=== PATIENT | female | born 2000 ===

== ENCOUNTER 2025-07-22 14:59 | Outpatient (AMB) | payer OTHER, SELFPAY ==
--- NOTE | 2025-07-22 15:03 | MHC.PC.OV ---
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 Specialist Required: No Accompanied by: Self / Same As Patient Allergies No Known Allergies Allergy (Verified 07/22/25 15:20) Medication List - Last Reconciled 07/22/25 by Viridiana Koch MD guanfacine ER 1 mg PO DAILY lamotrigine 200 mg PO DAILY venlafaxine ER 37.5 mg PO DAILY venlafaxine ER 75 mg PO DAILY Tobacco use date assessed: 07/22/25 Dental Screening Dental Screen Date: 07/22/25 Did you have a dental visit in the last 12 months?: Yes Did you have a dental problem in the last 6 months where you did not have access to dental care?: No Was dental information given to patient?: Patient has dentist HPI HPI Comments History of Present Illness Details The patient is a 25 year old female presenting with a physical examination. Anxiety: The patient is being treated for anxiety and sees a therapist every other week, sometimes more frequently due to increased stress. Tourette's Disorder: The patient reports a flare-up of her tics, which have worsened with increased stress. She has a neurology appointment at [facility] to address this. Left shoulder pain: The patient reports a recurring, burning pain above left scapular area that has been occurring for years. It flares up about once a month and can be intense enough to require her to lie on her back at work. She denies any associated neck pain. Nutrition: The patient reports challenges with eating due to stress, stating her last meal was at 5 PM the previous day. Her fluid intake has also been poor, limited to a few sips of water. She denies any nausea or vomiting. Pt has history of anorexia nervosa. 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 - Psychosocial Support: Attends therapy every other week, sometimes more frequently due to stress. 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 1. Little interest or pleasure in doing things: not at all 2. Feeling down, depressed, or hopeless: not at all 3. Trouble falling or staying asleep, or sleeping too much: not at all 4. Feeling tired or having little energy: not at all 5. Poor appetite or overeating: not at all 6. Feeling bad about yourself - or that you are a failure or have let yourself or your family down: not at all 7. Trouble concentrating on things, such as reading the newspaper or watching television: not at all 8. Moving or speaking so slowly that other people could have noticed. Or the opposite - being so fidgety or restless that you have been moving around a lot more than usual: not at all 9. Thoughts that you would be better off or of hurting yourself in some way: not at all Total score: 0 Depression Screening Interpretation: Negative Depression Screening Done: Yes 51888 - PHQ-9 Billing: Yes Source: Developed by Drs. Wolfgang Bowen, Linda Yusuf, Joe Arita and colleagues, with an educational christiano from [employer]. Thrive Questionnaire Date Thrive assessed: 07/22/25 I am a: Patient What is your living situation today?: I have a steady place to live Within the past 12 months, did the food you bought not last and you didn't have the money to get more?: Never true Within the past 12 months, did you worry whether your food would run out before you got money to buy more?: I choose not to answer this question Do you have trouble paying for medicines?: I choose not to answer this question Do you have trouble getting transportation to medical appointments?: I choose not to answer this question Do you have trouble paying your heating and electricity bill?: I choose not to answer this question Do you have trouble taking care of your child, family member or friend?: I choose not to answer this question Do you have trouble with day-to-day activities such as bathing, preparing meals, shopping, managing finances, etc.?: I choose not to answer this question Are you currently unemployed and looking for a job?: I choose not to answer this question Are you interested in more education?: I choose not to answer this question Please select the resources that you would like help with: None Currently or been in a relationship where the following occur: No concerns reported THRIVE Score: 0 AUDIT C Alcohol Use Questionnaire (AUDIT-C) 1. How often do you have a drink containing alcohol?: Monthly or less 2. How many drinks containing alcohol do you have on a typical day when you are drinking?: 1 or 2 3. How often do you have six or more drinks on one occasion?: Never Total Score: 1 CHANEL-7 AMB Questionnaire CHANEL-7 Date CHANEL - 7 assessed: 07/22/25 Feeling nervous, anxious, or on edge: 0 = Not at all Not being able to stop or control worryin = Not at all Worrying too much about different things: 0 = Not at all Trouble relaxin = Not at all Being so restless that it is hard to sit still: 0 = Not at all Becoming easily annoyed or irritable: 0 = Not at all Feeling afraid as if something awful might happen: 0 = Not at all Total CHANEL-7 score (0-4 normal; 5-9 mild; 10-14 moderate; 15-21 severe): 0 Source: Developed by Drs. Wolfgang Bowen, Linda Yusuf, Joe Arita and colleagues, with an educational christiano from [employer]. Review of Systems Narrative Review of Systems - General: per hpi - Constitutional: Reports poor appetite and decreased oral intake. - Eyes/Vision: Denies any changes to her vision prescription. - Neurological: per hpi - Musculoskeletal: Reports intermittent left shoulder pain that can be intense. Denies neck pain. - Psychiatric: Reports seeing a therapist for stress and anxiety. Physical exam (Primary Care) Vital Signs: Last Vital Signs Temp 97.1 F 07/22/25 15:18 Pulse 91 07/22/25 15:18 Resp 16 07/22/25 15:18 BP 104/80 07/22/25 15:18 Pulse Ox 97 07/22/25 15:18 Oxygen Delivery Method Room Air 07/22/25 15:18 BMI result Body Mass Index 27.2 Tobacco/Smoking Status: Tobacco use Status Tobacco use date assessed 07/22/25 07/22/25 15:04 Patient Tobacco Use Status Never used Tobacco 07/22/25 15:23 e-Cigarette/Vaping Use Never Used 07/22/25 15:23 PHQ-9: PHQ-9 Score PHQ-9: Total score 0 07/22/25 15:51 Depression Screening Interpretation: Negative Thrive Assessment: Date of Thrive Assessment Date Thrive assessed 07/22/25 07/22/25 15:04 Currently or been in a relationship where the following occur: No concerns reported Narrative Physical Exam - General: Patient is alert and cooperative. - HEENT: External auditory canals are clear bilaterally. Oropharynx is clear. - Cardiovascular: Regular rate and rhythm, normal S1 and S2 sounds. - Neck: Supple, no carotid bruits appreciated. Lymph nodes are non-enlarged. - Abdomen: Soft, non-tender to palpation with normal active bowel sounds. - Extremities: No lower extremity edema. - Musculoskeletal: Full range of motion of the left shoulder on active testing, without pain reported. Coding Level of Care Code Est Pt Prev Care 18-39y(88008) Add On Preventative Visit Only Diagnoses Tourette's F95.2 Anorexia R63.0 Routine adult health maintenance Z00.00 Additional Codes PHQ-9 - 07353 - PHQ-9 Billing: Yes ([id number]) Assessment & Plan Assessment & Plan (1) Tourette's: Code(s): F95.2 - Tourette's disorder Category: Medical (2) Anorexia: Code(s): R63.0 - Anorexia Category: Medical (3) Routine adult health maintenance: Code(s): Z00.00 - Encounter for general adult medical examination without abnormal findings Category: Medical Plan Assessment and Plan 1. Annual Physical Examination - She is managing chronic conditions with specialists and follows up regularly. - A comprehensive metabolic panel, liver function tests, and kidney function tests will be ordered to monitor her overall health, especially given her poor oral intake. 2. Left shoulder pain - The patient reports a chronic, recurring burning pain in the left shoulder blade area. - A cervical spine X-ray will be ordered to rule out a cervical spine etiology. - The patient was advised on using a heating pad for symptomatic relief. 3. Tourette's Disorder - Continue current medications, including Guanfacine ER 1 mg. 4. Anxiety - The patient continues to manage her anxiety - She will continue her current regimen of Venlafaxine and lamotrigine and maintain follow-up with her therapist and psychiatrist. 5. Health Maintenance - The patient declined a flu shot. - She was advised to ensure her upcoming gynecology appointment is scheduled. - Follow up in 1 year Plan - Ordered lab work, including electrolytes, liver, and kidney function tests. - Ordered a cervical spine X-ray - Patient to continue current medications: Guanfacine ER 1mg, Lamotrigine 200mg, and Venlafaxine. - Patient advised to follow up with neurology - Patient to continue therapy sessions for stress and anxiety. Patient Instructions - Please have your blood work and cervical spine X-ray completed today. - Continue taking your medications as prescribed, including Guanfacine, Lamotrigine, and Venlafaxine. - Keep your neurology appointment - Make sure your gynecology appointment for next year is scheduled. - For your shoulder pain, you can use a heating pad Orders: Orders Complete Blood Count Auto Diff 07/22/25 F95.2 - Tourette's disorder, K21.9 - Gastro-esophageal reflux disease without esophagitis, R63.0 - Anorexia Comprehensive Met. Panel 07/22/25 F95.2 - Tourette's disorder, K21.9 - Gastro-esophageal reflux disease without esophagitis, R63.0 - Anorexia Lipid Panel 07/22/25 F95.2 - Tourette's disorder, K21.9 - Gastro-esophageal reflux disease without esophagitis, R63.0 - Anorexia Ferritin 07/22/25 F95.2 - Tourette's disorder, K21.9 - Gastro-esophageal reflux disease without esophagitis, R63.0 - Anorexia Folate 07/22/25 F95.2 - Tourette's disorder, K21.9 - Gastro-esophageal reflux disease without esophagitis, R63.0 - Anorexia TSH reflex Free T4 07/22/25 F95.2 - Tourette's disorder, K21.9 - Gastro-esophageal reflux disease without esophagitis, R63.0 - Anorexia Vitamin D 25-OH Total 07/22/25 F95.2 - Tourette's disorder, K21.9 - Gastro-esophageal reflux disease without esophagitis, R63.0 - Anorexia Phosphorus 07/22/25 F95.2 - Tourette's disorder, K21.9 - Gastro-esophageal reflux disease without esophagitis, R63.0 - Anorexia XR cervical spine 5V 07/22/25 M54.12 - Radiculopathy, cervical region IRON PROFILE 07/22/25 F95.2 - Tourette's disorder, K21.9 - Gastro-esophageal reflux disease without esophagitis, R63.0 - Anorexia Vitamin B12 07/22/25 F95.2 - Tourette's disorder, K21.9 - Gastro-esophageal reflux disease without esophagitis, R63.0 - Anorexia Magnesium 07/22/25 F95.2 - Tourette's disorder, K21.9 - Gastro-esophageal reflux disease without esophagitis, R63.0 - Anorexia
[2025-07-22 15:18] VITALS: BP 104/80; PULSE 91; RESP 16; TEMP 36.2; O2SAT 97; BMI 27.2
--- OUTSIDE RECORDS SUMMARY | 2025-07-22 21:21 | XMS_ITS | Continuity of Care Document ---
Author Organization [place] - [facility], [facility] Address [address] [place] [address] Care Team Providers Care Manager Creative Name Role Phone ANGELA CHAMPAGNE Referring Provider [phone] Assessment Encounter Date Assessment Date Assessment LastModified by Organization Details LastModified Time 05/06/2025 05/06/2025 Chaz (Eliz's daughter) is a pleasant 25-year-old female who presents today for subjective hearing loss left. On exam remove cerumen bilaterally with normal-appeari ng ears otherwise. [place] did lateralized to the right ear. Audiogram revealed near perfect hearing on the right, she does have normal hearing on the left but there is a subtle 4 dB difference between her SRT's worse on the left. 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 No other concerns at this time can follow-up as neede [email or web address] Not available 05/06/2025 12:00:46 Plan of Treatment Reminders Order Date Submit Date Provider Last Modified By Organization Details Last Modified Time Details Appointments None record ed. Lab None record ed. Referral None record ed. Procedures None record ed. Surgeries None record ed. Imaging None record ed. Medication Orders None record ed. Patient TargetsNo targets recorded. Patient InstructionsNo instructions recorded. Reason for Referral None Reported. Results Created Date Observation Date Name Description Value Unit Range Abnormal Flag Note LastModifiedBy Organization Detail LastModifiedTime 05/06/20 25 audio gram No observ ation record ed. BARCODE Not Available 2024 13:43:46 Result Notes None recorded. Problems Name Problem SNOMED Code Status Onset Date Resolution Date Notes Provider Name and Address Organization Details Recorded Time Abnormal auditory perception 76832240 Active 025 Chandu Castillo, DO [address] [facility], [address], [place], [address], [place] - [facility] 11:41:42 Abnormal auditory perception 71470080 Active 025 BELIA ARIAS, AUD [address] [facility], [address], [place], [address], [place] - [facility] 11:49:13 Problem Notes None recorded. Procedures Surgical History Date Name Laterality Status Provider Name and Address Organization Details Recorded Time 05/06/2025 Air & Speech Audio with Tymps - 08187, 62945 & 75340 completed BELIA ARIAS, [facility] [address] [facility] [address], [place], [address], [facility] - [facility] 05/06/2025 11:46:00 Imaging Results None recorded. Procedure Notes None recorded. Medical Equipment None Reported. Allergies No known drug allergies Medications Name Sig Start Date Stop Date Status Note LastModified by Organization Details LastModified Time venlafaxine ER 37.5 mg capsule,exten ded release 24 hr TAKE 1 CAPSULE DAILY (TOTAL 112.5MG) active Not Available Not Available No t Available venlafaxine ER 75 mg capsule,exten ded release 24 hr TAKE 1 CAPSULE ORALLY DAILY (TOTAL 112.5MG) active Not Available Not Available No t Available lamotrigine 100 mg tablet TAKE 2 TABLETS BY MOUTH EVERY DAY active Not Available Not Available No t Available guanfacine ER 1 mg tablet,extend ed release 24 hr TAKE 1 TABLET BY MOUTH DAILY. DO NOT CHEW OR BREAK. active Not Available Not Available No t Available Vitals Date Recorded Body height Body mass index (BMI) Body weight Provider Name and Address Organization Details Last Updated DateTime 05/06/2025 157.48 cm 27.4 kg/m2 63449.86 g LEIGH EVIE [place] - [facility] 05/06/2025 11:08:07 Social History None recorded. Functional Status None recorded. Mental Status None recorded. Family History Nothing Reported. Medical History Condition Response Anxiety Y Depression Y Gynecological HistoryNo gynecological history recorded. Obstetrics History GPAL:G 0 P 0 0 0 0 Past Encounters Encounter ID Performer Location Encounter Start Date Encounter Closed Date Diagnosis/Indication Diagnosis SNOMED-CT Code Diagnosis ICD10 Code Diagnosis IMO Codes Diagnosis Note [id number] Chandu Castillo DO [facility] [address] [place] [address] 05/06/2025 11:00:40 05/06/2025 12:31:44 Abnormal auditory perception 33034594 H93.293 [id number] Right Ear:Normal hearing with excellent speech discrimina tion.Type A tympanogra m.Left Ear:Normal hearing with excellent speech discrimina tion.Type A tympanogra m. Health Concerns Section Related Observation LastModified by Organization Detai ls LastModified Time None Recorded Concern Status LastModified by Organization Details LastModified Time None Recorded Payers Encounter Date Sequence Insurance Name Policy Number Policy Gómez Covered Member ID Gómez Member ID Guarantor Name 05/06/2025 1 [facility] [id number] Shonda Alverto [id number] Shonda Del Toro Notes Date Note Type Note Provider Name and Address Organization Details Recorded Time 05/06/2025 text/html ROS as noted in the HPI The patient presents today with otologic concerns including Left sided hearing loss for years. This has been progressive in nature. No known acoustic trauma. She notes that some of her coworkers are mentioning theyre having to repeat herself multiple times when they talk to her. They deny Bilateral non-pulsatile tinnitusThey deny Bilateral otalgiaThey deny vertigoThey deny autophonyThey deny family hx of congential hearing lossPrior Audiogram: NoneRemember: This is Eliz's daughter, she does work at [employer] and is surrounded by loud animal noises. Chandu Castillo DO [address] [place] [address], [phone], [facility] - [facility] 05/06/2025 12:01:00 OBGyn Episode No OBEpisode recorded.
--- OUTSIDE RECORDS SUMMARY | 2025-07-22 21:21 | XMS_ITS | Data Portability ---
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 Name Role Phone ANGELA CHAMPAGNE Referring Provider Assessment Encounter Date Assessment Date Assessment LastModified [...] I think it is astute enough to order picker subtle differences which she is seeing at [...] Organization Details Recorded Time Abnormal auditory perception 14748232 Active 025 Chandu Jonathan, DO [address] [facility] [address], [place], [address], [place] - [facility] [place] 11:41:42 Abnormal auditory perception 15628929 Active 025 BELIA ARIAS, AUD [address] [facility], [address], [place], [address], [place] - [facility] [place] 11:49:13 Problem Notes None recorded. Procedures Surgical History Date Name Laterality Status Provider Name and Address Organization Details Recorded Time 05/06/2025 Air & Speech Audio with Tymps - 44988, 25549 & 36431 completed BELIA ARIAS, [facility] [address] [facility] [address], [place], [address], [facility] - [facility] [place] 05/06/2025 11:46:00 Imaging Results None recorded. Procedure [...] Updated DateTime 05/06/2025 157.48 cm 27.4 kg/m2 93504.86 g LEIGH CASE [place] - [facility] [place] 05/06/2025 11:08:07 Social History None recorded. Functional [...] ICD10 Code Diagnosis IMO Codes Diagnosis Note [id number] Chandu Castillo DO [facility] [address] [place] [address] 05/06/2025 11:00:40 05/06/2025 12:31:44 Abnormal auditory perception 27234545 H93.293 [id number] Right Ear:Normal hearing with excellent speech discrimina tion.Type A tympanogra m.Left Ear:Normal hearing with excellent speech discrimina tion.Type A tympanogra m. Health Concerns Section Related Observation LastModified by Organization Detai ls LastModified Time None Recorded Concern Status LastModified by Organization Details LastModified Time None Recorded Advance Directives Directive None Recorded Payers Insurance Date Sequence Insurance Name Policy Number Policy Gómez Covered Member ID Gómez Member ID Guarantor Name 05/13/2025 1 [facility] [id number] Shonda Alverto [id number] Shonda Del Toro Notes Date Note Type [...] Eliz's daughter, she does work at [employer] and is surrounded by loud animal noises. Chandu Castillo DO [address] [place] [address], [phone], [facility] - [facility] 05/06/2025 12:01:00 OBGyn Episode No OBEpisode recorded.
== END 2025-07-22 16:00 | disposition home or self-care (01) ==
LOC: HO.HMCHD 15:00
PROVIDERS: PCP Internal Medicine; Visit Provider Internal Medicine
DX: Z00.00 Encounter for general adult medical examination without abnormal findings (principal); F95.2 Tourette's disorder; R63.0 Anorexia

== ENCOUNTER 2025-07-22 14:59 | Outpatient (REF) | payer OTHER, SELFPAY ==
--- NOTE | ~2025-07-22 | XR_ITS ---
EXAMINATION: XR CERVICAL SPINE CLINICAL INFORMATION: M54.12 - Radiculopathy, cervical region COMPARISON: None available. TECHNIQUE: 3 views of the cervical spine were obtained. FINDINGS: There are no prevertebral soft tissue or bony abnormalities demonstrated. No compression fractures or subluxations are identified. Alignment is maintained at the atlanto-axial articulation. The disc spaces are preserved. No endplate changes are seen. The prevertebral soft tissues are normal. The foramina are patent. XR/XR cervical spine 5V IMPRESSION: Unremarkable examination. Electronically signed by: Ron García MD 07/22/2025 04:53 PM EST
[2025-07-22 16:21] LABS: MANUAL DIFF FLAG NO
[2025-07-22 17:04] LABS: Hematocrit 45.9 % (37.0-47.0); Hemoglobin 15.6 g/dl (12.0-16.0); Imm Gran Abs Auto 0.03 X10*3/uL (0.00-0.03); Imm Gran Pct Auto 0.5 % (0.0-0.4); Lymphocytes Absolute Auto 1.6 X10*3/uL (1.2-4.9); Mean Corpuscular HGB Conc 34.0 g/dl (31.0-35.0); Mean Corpuscular Hemoglobin 29.5 pg (27.0-33.0); Mean Corpuscular Volume 86.9 fL (80.0-98.0); NRBC Abs Auto 0.000 X10*3/uL (0.0-0.012); NRBC Pct Auto 0.0 /100WBC (0.0-0.2); Platelet Count 294 X10*3/uL (160-400); Red Blood Count 5.28 X10*6/uL (4.20-5.50); White Blood Count 6.6 X10*3/uL (4.8-10.8)
[2025-07-22 18:11] LABS: Alanine Aminotransferase 21 U/L (0-31); Albumin Level 5.1 g/dL (3.5-5.0); Alkaline Phosphatase 76 U/L (39-117); Anion Gap 10 (12-20); Aspartate Amino Transferase 24 U/L (5-31); Blood Urea Nitrogen 12 mg/dL (9-16); Calcium 9.6 mg/dL (8.4-10.2); Carbon Dioxide 29 mmol/L (22-29); Chloride 107 mmol/L (96-108); Cholesterol 180 mg/dL (<200); Estimated Glomerular Filt Rate > 60; HDL Cholesterol 64 mg/dL (>40); Iron 161 mcg/dL (30-160); Magnesium 2.3 mg/dL (1.6-2.6); Percent Iron Saturation 58 % (15-50); Potassium 4.6 mmol/L (3.3-5.1); Sodium 141 mmol/L (135-145); Total Iron Binding Capacity 276 mcg/dL (228-428); Total Protein 7.4 g/dL (6.5-8.0); Triglycerides 46 mg/dL (<150); Unsaturated Iron Binding 115 ug/dL
[2025-07-22 18:19] LABS: Ferritin 85 ng/mL (10-122)
[2025-07-22 18:20] LABS: Folate 8.9 ng/mL (> or = 4.0); Vitamin B12 550 pg/mL (200-900)
== END 2025-07-22 15:00 | disposition home or self-care (01) ==
LOC: HO.LAB 14:59
PROVIDERS: PCP Internal Medicine; Visit Provider Internal Medicine
DX: Z00.00 Encounter for general adult medical examination without abnormal findings (principal); K21.9 Gastro-esophageal reflux disease without esophagitis; F95.2 Tourette's disorder; R63.0 Anorexia; M54.12 Radiculopathy, cervical region; Z79.899 Other long term (current) drug therapy
CPT/HCPCS: 36415; 72050; 80053; 80061; 82306; 82607; 82728; 82746; 83540; 83735; 84100; 84443; 85025; 96127

== ENCOUNTER → 2025-07-22 16:22 | Outpatient (BNV) | payer OTHER, SELFPAY | PROVIDERS: PCP Internal Medicine; Visit Provider Radiology Diagnostic Radiology | DX: M54.12 Radiculopathy, cervical region (principal) | CPT/HCPCS: 72050 ==